=== PATIENT | female | born 1970 | race Asian ===

== ENCOUNTER → 2016-09-06 | Outpatient (CLI) | payer OTHER ==
--- NOTE | 2016-09-06 15:48 | CPEEG ---
[f rep st] ELECTROENCEPHALOGRAM EEG DATE OF STUDY: 09/06/2016 DATE OF INTERPRETATION: 09/06/2016 INTERPRETATION: Normal EEG during wakefulness and sleep. There were no potentially epileptogenic a bnormalities present on the recording. REPORT: This EEG contains 10 Hz alpha activity to the posterior head regions. There was no abnorma l activation at rest, during photic stimulation, or hyperventilation. The patient became drowsy and fell asleep during the study. There was no observation during drowsiness, sleep, or during times o f arousal. /[id number]/MODL
== END ==
LOC: FCPNEURO 09:26
PROVIDERS: ATTEND Psychiatry & Neurology Neurology
DX: R29.818 Other symptoms and signs involving the nervous system (principal); H53.9 Unspecified visual disturbance

== ENCOUNTER → 2017-03-13 | Outpatient (CLI) | payer OTHER | LOC: BMCIMAGING 08:35 | PROVIDERS: ATTEND Internal Medicine | DX: Z12.31 Encounter for screening mammogram for malignant neoplasm of breast (principal) | CPT/HCPCS: G0202 ==

== ENCOUNTER → 2018-07-26 | Outpatient (CLI) | payer OTHER | LOC: BMCIMAGING 13:40 | PROVIDERS: ATTEND Internal Medicine | DX: Z12.31 Encounter for screening mammogram for malignant neoplasm of breast (principal) ==